=== PATIENT | male | born 1960 | race Caucasian/White ===

== ENCOUNTER 2016-09-06 08:58 | Inpatient (IN) | payer MEDICAID, OTHER ==
[~2016-09-06] VITALS: Ht 177.8 cm; Wt 60.1 kg
[~2016-09-06 08:58] MED LIST: AMLO-511 PO; MORP100T6 PO
[2016-09-06] MEDS ORDERED: IBUP-1547 PO (09:14)
[2016-09-06] MEDS ORDERED: CLON.1 PO (09:14)
[2016-09-06] MEDS ORDERED: LOVA20 PO (09:14)
[2016-09-06] MEDS ORDERED: LOSA50TA37 PO (09:14)
[2016-09-06 10:04] LABS: BASOPHILS % (AUTO) 1.8 % (0.0-2.0); EOSINOPHILS % (AUTO) 0 % (1.0-6.0); HEMATOCRIT 33.3 % (41-53); HEMOGLOBIN 11.3 g/dL (13.5-17.5); LYMPHOCYTES # (AUTO) 1.1 K/uL (1.0-4.8); LYMPHOCYTES % (AUTO) 10.4 % (22.0-44.0); MEAN CORPUSCULAR HEMOGLOBIN 32.9 pg (26.0-34.0); MEAN CORPUSCULAR HGB CONC 34.1 G/dL (31.0-37.0); MEAN CORPUSCULAR VOLUME 97 fL (80-100); MONOCYTES # (AUTO) 1.1 K/uL (0.1-1.0); MONOCYTES % (AUTO) 10.1 % (2.0-9.0); NEUTROPHILS # (AUTO) 8.4 K/uL (1.8-7.7); NEUTROPHILS % (AUTO) 77.7 % (40.0-70.0); PLATELET COUNT (AUTO) 252 K/uL (150-450); RED BLOOD CELL COUNT(AUTO) 3.45 MIL/uL (4.50-5.90); RED CELL DISTRIBUTION WIDTH 14.5 % (11.5-14.5); WHITE BLOOD COUNT (AUTO) 10.9 K/uL (4.5-11.0)
[2016-09-06 10:12] LABS: ANION GAP 15 mmol/L (8-16); CALCIUM, TOTAL 9.3 mg/dL (8.8-10.5); CARBON DIOXIDE 23 mmol/L (22-29); CHLORIDE 96 mmol/L (98-107); CREATININE 1.32 mg/dL (0.60-1.30); GLOMERULAR FILTR. RATE CALC 56 mL/min (>60); POTASSIUM 3.7 mmol/L (3.5-5.1); SODIUM SERUM 134 mmol/L (136-145); UREA NITROGEN, BLOOD 35 mg/dL (7-18)
[2016-09-06 10:18] LABS: ALANINE AMINOTRANSFERASE 33 U/L (12-78); ALBUMIN 4.5 g/dL (3.4-5.0); ASPARTATE AMINOTRANSFERASE 109 U/L (15-37); BILIRUBIN,TOTAL 2.3 mg/dL (0.1-1.0); TOTAL PROTEIN, SERUM 7.7 g/dL (6.4-8.2)
[2016-09-06] MEDS ORDERED: ZOLPIDEM TARTRATE 10 MG TABLET PO PRN (10:45)
[2016-09-06] MEDS ORDERED: OLANZapine 5 MG RAPDIS TABLET PO PRN (10:45)
[2016-09-06] MEDS ORDERED: SODIUM CHLORIDE 0.9% 1,000 ML IV ONE (10:45)
[2016-09-06] MEDS ORDERED: ACETAMINOPHEN 325 MG TABLET PO ONE (12:00)
[2016-09-06 16:33] VITALS: BP 136/77
[2016-09-06] MEDS ORDERED: HydrOXYzine PAMOATE 50 MG CAPSULE PO PRN (17:30)
[2016-09-06] MEDS ORDERED: LOPERAMIDE HCL 2 MG CAPSULE PO PRN (17:30)
[2016-09-06] MEDS ORDERED: GuaiFENesin/D-METHORPHAN [SUGAR-FREE] 200-20MG/10 ML SYRUP UDCUP PO PRN (17:30)
[2016-09-06] MEDS ORDERED: PROMETHAZINE HCL 25 MG TABLET PO PRN (17:30)
[2016-09-06] MEDS ORDERED: MAG HYDROX/AL HYDROX/SIMETH ES 30 ML SUSPENSION UDCUP PO PRN (17:30)
[2016-09-06] MEDS ORDERED: ACETAMINOPHEN 325 MG TABLET PO PRN (17:30)
[2016-09-06] MEDS ORDERED: MAGNESIUM HYDROXIDE SUSPENSION 30 ML UDCUP PO PRN (17:30)
[2016-09-06] MEDS ORDERED: TUBERCULIN, PURIFIED PROTEIN DERIVATIVE 5 TU/0.1 ML SYG ID ONE (17:30)
[2016-09-06] MEDS ORDERED: CloNIDine HCL 0.1 MG TABLET PO PRN (17:45)
[2016-09-06] MEDS ORDERED: IBUPROFEN 600 MG TABLET PO PRN (17:45)
[2016-09-06] MEDS: LORazepam 2 MG TABLET PO PRN (19:43)
[2016-09-06] MEDS ORDERED: OLANZapine 5 MG RAPDIS TABLET PO SCH (21:00)
[2016-09-07 00:59] VITALS: BP 121/70
[2016-09-07 08:23] VITALS: BP 104/61
[2016-09-07] MEDS: FOLIC ACID 1 MG TABLET PO SCH (08:56)
[2016-09-07] MEDS: THIAMINE HCL 100 MG TABLET PO SCH ×2 (08:56→17:20)
[2016-09-07] MEDS: MULTIVITAMINS WITH MINERALS, THERAPEUTIC TABLET PO SCH (08:56)
[2016-09-07] MEDS: AmLODIPine BESYLATE 5 MG TABLET PO SCH (08:57)
[2016-09-07] MEDS: LOSARTAN POTASSIUM 50 MG TABLET PO SCH (08:58)
[2016-09-07] MEDS ORDERED: PNEUMOCOCCAL VACCINE POLYVALENT 0.5 ML VIAL [PPSV23] IM ONE (13:15)
[2016-09-07 16:55] VITALS: BP 121/71
[2016-09-07] MEDS: LOVASTATIN 20 MG TABLET PO SCH (17:20)
[2016-09-07] MEDS: OLANZapine 10 MG RAPDIS TABLET PO SCH (20:45)
[2016-09-07] MEDS: DIVALPROEX SODIUM 500 MG ER TABLET PO SCH (20:45)
[2016-09-08 01:01] VITALS: BP 117/67
[2016-09-08 08:51] VITALS: BP 117/64
[2016-09-08] MEDS: AmLODIPine BESYLATE 5 MG TABLET PO SCH (09:49)
[2016-09-08] MEDS: THIAMINE HCL 100 MG TABLET PO SCH ×2 (09:49→17:20)
[2016-09-08] MEDS: LOSARTAN POTASSIUM 50 MG TABLET PO SCH (09:50)
[2016-09-08] MEDS: MULTIVITAMINS WITH MINERALS, THERAPEUTIC TABLET PO SCH (09:50)
[2016-09-08] MEDS: FOLIC ACID 1 MG TABLET PO SCH (09:50)
[2016-09-08] MEDS: LORazepam 2 MG TABLET PO PRN (11:24)
[2016-09-08 16:32] VITALS: BP 129/80
[2016-09-08] MEDS: LOVASTATIN 20 MG TABLET PO SCH (17:20)
[2016-09-08] MEDS: DIVALPROEX SODIUM 500 MG ER TABLET PO SCH (20:43)
[2016-09-08] MEDS: OLANZapine 10 MG RAPDIS TABLET PO SCH (20:44)
[2016-09-09 00:36] VITALS: BP 130/87
[2016-09-09 08:11] VITALS: BP 147/78
[2016-09-09] MEDS: FOLIC ACID 1 MG TABLET PO SCH (09:07)
[2016-09-09] MEDS: LOSARTAN POTASSIUM 50 MG TABLET PO SCH (09:07)
[2016-09-09] MEDS: AmLODIPine BESYLATE 5 MG TABLET PO SCH (09:07)
[2016-09-09] MEDS: MULTIVITAMINS WITH MINERALS, THERAPEUTIC TABLET PO SCH (09:07)
[2016-09-09] MEDS: THIAMINE HCL 100 MG TABLET PO SCH (09:07)
[2016-09-09] MEDS: LORazepam 2 MG TABLET PO PRN (09:47)
[2016-09-09] MEDS ORDERED: DIVA500T52 PO (11:28)
[2016-09-09] MEDS ORDERED: OLAN10TA22 PO (11:28)
[2016-09-09] MEDS ORDERED: NALT50 PO (11:28)
[2016-09-09 11:50] VITALS: BP 163/102
[2016-09-09 13:50] VITALS: BP 135/95
[2016-09-10] MEDS ORDERED: NALTREXONE HCL 50 MG TABLET PO SCH (09:00)
== END 2016-09-09 14:30 | disposition home or self-care (01) | DRG 751 ==
LOC: EMS 09:00 → EEVIPCON 09:00 → B2S 14:57
PROVIDERS: ADMIT Psychiatry & Neurology Psychiatry; ATTEND Psychiatry & Neurology Psychiatry
DX: F29 Unspecified psychosis not due to a substance or known physiological condition (principal); Z91.19 Patient's noncompliance with other medical treatment and regimen; I10 Essential (primary) hypertension; D64.9 Anemia, unspecified; E78.5 Hyperlipidemia, unspecified; Z53.29 Procedure and treatment not carried out because of patient's decision for other reasons; F15.90 Other stimulant use, unspecified, uncomplicated; G89.29 Other chronic pain; M48.00 Spinal stenosis, site unspecified; Z88.1 Allergy status to other antibiotic agents; Z79.899 Other long term (current) drug therapy; Z82.3 Family history of stroke; Z82.49 Family history of ischemic heart disease and other diseases of the circulatory system; Z82.5 Family history of asthma and other chronic lower respiratory diseases; Z87.891 Personal history of nicotine dependence; Z28.21 Immunization not carried out because of patient refusal; Z72.89 Other problems related to lifestyle
CPT/HCPCS: 93005; 96360; 99285; G0480; J7030